=== PATIENT | female | born 1970 | race Caucasian/White ===

== ENCOUNTER 2021-11-25 02:17 | Emergency (ER) | payer OTHER ==
[2021-11-25] MEDS ORDERED: HYDROmorphone 1 MG/ML Syringe IM ONE ×2 (02:31→06:35)
== END 2021-11-25 07:35 | disposition home or self-care (01) ==
LOC: JP.ED 02:17
DX: S32.048A Other fracture of fourth lumbar vertebra, initial encounter for closed fracture (principal); Z88.0 Allergy status to penicillin; Z79.82 Long term (current) use of aspirin; V80.010A Animal-rider injured by fall from or being thrown from horse in noncollision accident, initial encounter; Y93.52 Activity, horseback riding
CPT/HCPCS: 72131; 72192; 96372; 99281; 99284; J1170

== ENCOUNTER 2021-12-07 01:44 | Emergency (ER) | payer OTHER ==
[2021-12-07] MEDS ORDERED: Apixaban 5 MG Tab PO ONE (03:36)
== END 2021-12-07 03:52 | disposition home or self-care (01) ==
LOC: JP.ED 01:44
DX: I82.4Z2 Acute embolism and thrombosis of unspecified deep veins of left distal lower extremity (principal); Z88.0 Allergy status to penicillin; Z79.01 Long term (current) use of anticoagulants
CPT/HCPCS: 36415; 80048; 85025; 85610; 85730; 93971; 99284; A9270